=== PATIENT | female | born 1940 | race Caucasian/White ===

== ENCOUNTER 2018-12-09 08:27 | Emergency (ER) | payer OTHER ==
[2018-12-09] MEDS ORDERED: NS 1,000 ML IV ONE (08:34)
--- NOTE | 2018-12-09 08:34 | EDPHY ---
H & P Time Seen by Provider: 12/09/18 11:00 HPI/ROS: Chief complaint. Fall HPI. Patient is 78-year-old female here by EMS initially as a limited trauma activation. She got up this morning and her legs were so weak they gave out and she fell to the floor. She did not have any injuries. Did not strike her head or lose consciousness. No neck pain. For the past 6 weeks patient has been ill. It started 6 weeks ago with bumps under scan and rash. Then she has had swelling of fingers to the right hand with bruising. She was hospitalized with [facility] for 1 week and there was some discussion gout. She then has severe pain feet. She has had swelling to right arm and right leg for about a week. She was seen in [facility] emergency department 2 days ago and had negative ultrasounds for DVT of right upper and right lower extremities. It did diagnosis superficial phlebitis. She had continuing gradually increasing pain right hand and swelling her feet. No fever. No chest pain, shortness of breath or abdominal. She also had an endoscopy while shows Hospital which showed a mass in the abdomen abdomen liver and pancreas. She was also started on antibiotics for skin infection 2 days ago ROS 10 systems were reviewed and negative with the exception of the elements mentioned in the history of present illness Past Medical/Surgical History: Past medical history is significant for the above illness only. No meds and no past medical history Social History: Single, nonsmoker, no alcohol Physical Exam: General Appearance: Alert well-developed female mild distress vital signs are stable Eyes: Pupils equal and round no pallor or injection. ENT, Mouth: Mucous membranes are moist. Respiratory: There are no retractions, lungs are clear to auscultation. Cardiovascular: Regular rate and rhythm. Gastrointestinal: Abdomen is soft and nontender, no masses, bowel sounds normal. Neurological: Awake and alert, sensory and motor exams grossly normal. Skin: 3 erythematous tender nodules to the right driver. Appears to be healing similar lesion on the left driver Musculoskeletal: Neck is supple nontender. Extremities swelling to right wrist and hand with ecchymosis to the fingers especially the right ring finger. Swelling to the right lower extremity. Psychiatric: Patient is oriented X 3, there is no agitation. Constitutional: Initial Vital Signs Temperature (C) 36.9 C 12/09/18 08:36 Heart Rate 79 12/09/18 08:36 Respiratory Rate 18 12/09/18 08:36 Blood Pressure 189/83 H 12/09/18 08:36 O2 Sat (%) 93 12/09/18 08:36 O2 Delivery Mode Nasal Cannula O2 (L/minute) 2 Allergies/Adverse Reactions: No Known Allergies Allergy (Unverified 12/09/18 08:50) Medical Decision Making - Diagnostics EKG Interpretation: EKG interpreted by me shows normal sinus rhythm normal interval and axis. QRS is normal P. LVH by voltage. No arrhythmia. Rate 75 Imaging Results: Chest x-ray interpreted by me is normal without pneumonia Right hand and right wrist x-ray negative for fracture Procedures: IV normal saline, monitor ED Course/Re-evaluation: Patient remained stable. She and I discussed imaging and lab results. We discussed treatment plan including recommendation for admission. As the patient has had extensive workup over the last 6 weeks through the [facility] system she is fine with being transferred to [facility] I consulted discussed case with Dr. Colmenares for [facility]. He discussed this case with Dr. Kanchan Shah, hospitalist who agrees to the admission. Differential Diagnosis: Patient was so weak today that she could not stand fall and fell. No injury. No evidence for sepsis. She lipase greater than 20,000. She has swelling and bruising to the hand with recent workup with a negative DVT and no fracture today. Patient has painful erythematous nodules to her right lower extremity. She apparently also tightness in. - Data Points Laboratory Results: Laboratory Results 12/09/18 08:30 12/09/18 08:30 Medications Given: Discontinued Medications Sodium Chloride (Ns) 1,000 mls @ 0 mls/hr IV EDNOW ONE; Wide Open PRN Reason: Protocol Stop: 12/09/18 08:35 Last Admin: 12/09/18 08:52 Dose: 1,000 mls Morphine Sulfate (Morphine) 6 mg IVP EDNOW ONE Stop: 12/09/18 09:26 Last Admin: 12/09/18 09:36 Dose: 6 mg Point of Care Test Results: Chemistry 12/09/18 08:40 POC Troponin I 0.04 ng/mL ng/mL (0.00-0.08) Departure - Departure Disposition: Acute Care Hospital Not [facility] Clinical Impression: Pancreatitis Condition: Fair Referrals: Patient,NotPresent [Unknown] - As per Instructions
[2018-12-09 08:48] LABS: PLATELET COUNT 403 10^3/uL (150-400)
[2018-12-09 12:40] VITALS: BP 196/90
--- NOTE | 2018-12-09 15:07 | CPEKG ---
Test Reason : OPEN Blood Pressure : / mmHG Vent. Rate : 075 BPM Atrial Rate : 075 BPM P-R Int : 179 ms QRS Dur : 099 ms QT Int : 467 ms P-R-T Axes : 053 035 090 degrees QTc Int : 522 ms Sinus rhythm LVH with secondary repolarization abnormality Prolonged QT interval Confirmed by Aris Mallory ([id number]) on 12/09/2018 3:07:02 PM Referred By: Aris Mallory Confirmed By:Aris Mallory
== END 2018-12-09 13:03 | disposition short-term general hospital (02) ==
LOC: EDUNIT#
DX: K85.90 Acute pancreatitis without necrosis or infection, unspecified (principal); J40 Bronchitis, not specified as acute or chronic; S60.221A Contusion of right hand, initial encounter; R22.43 Localized swelling, mass and lump, lower limb, bilateral; E86.9 Volume depletion, unspecified; W19.XXXA Unspecified fall, initial encounter; Y92.9 Unspecified place or not applicable; Y99.9 Unspecified external cause status; Y93.9 Activity, unspecified
CPT/HCPCS: 71045; 71046; 73110; 73130; 93005; 96361; 96374; 99285; J2270; 84484-ER; G0390